=== PATIENT | female | born 1955 | race Caucasian/White ===

== ENCOUNTER 2018-06-02 10:26 | Emergency (ER) | payer BC ==
[2018-06-02 10:42] VITALS: BP 115/55
--- NOTE | 2018-06-02 11:22 | UC ---
Laceration HPI - HPI Summary HPI Summary: 62 yo female presents with laceration to right index finger. She tells me that last night she was closing her screen door and her finger got caught in a metal piece and she sustained a laceration to her right index finger pad. She bandaged the area, but today the site was still bleeding. Unsure date of last tetanus. - History Of Current Complaint Chief Complaint: UCLaceration Stated Complaint: FINGER LACERATION Time Seen by Provider: 06/02/18 11:22 Hx Obtained From: Patient Laceration Location: Finger Mechanism Of Injury: Sharp Trauma Onset/Duration: Sudden Onset Severity: Mild Pain Intensity: 2 Pain Scale Used: 0-10 Numeric - Allergies/Home Medications Allergies/Adverse Reactions: Allergies Allergy/AdvReac Type Severity Reaction Status Date / Time No Known Allergies Allergy Verified 06/02/18 10:42 Home Medications: Home Medications Escitalopram Oxalate [Lexapro 20 mg] 20 mg PO DAILY 06/02/18 [History Confirmed 06/02/18] PMH/Surg Hx/FS Hx/Imm Hx Psychological History: Anxiety, Depression - Surgical History Surgical History: Yes Surgery Procedure, Year, and Place: APPENDECTOMY. HYSTERECTOMY - Family History Known Family History: Positive: None - Social History Occupation: Employed Full-time Lives: With Family Alcohol Use: Occasionally Substance Use Type: None Smoking Status (MU): Never Smoked Tobacco Review of Systems All Other Systems Reviewed And Are Negative: Yes Constitutional: Positive: Negative Skin: Positive: Other - laceration right finger pad Respiratory: Positive: Negative Cardiovascular: Positive: Negative Neurovascular: Positive: Negative Neurological: Positive: Negative Psychological: Positive: Negative Physical Exam - Summary Physical Exam Summary: GENERAL: NAD. WDWN. No pain distress. SKIN: RIGHT index finger pad: 5mm square shaped superficial shear-like laceration. Mild active bleeding. Clean and without FB. NECK: Supple. Nontender. No lymphadenopathy. CHEST: No accessory muscle use. Breathing comfortably and in no distress. CV: Pulses intact. Cap refill <2seconds NEURO: Alert. PSYCH: Age appropriate behavior. Triage Information Reviewed: Yes Vital Signs: Initial Vital Signs Temp 98 F 06/02/18 10:39 Pulse 70 06/02/18 10:39 Resp 16 06/02/18 10:39 BP 115/55 06/02/18 10:39 Pulse Ox 98 06/02/18 10:39 Vital Signs Reviewed: Yes Laceration Course/Dx - Course/Dx Course Of Treatment: Wound irrigated with 500mL NS. Gel-foam applied and bandaged with telfa and tubegauze. tdap updated today - Diagnosis Provider Diagnosis: Laceration of right index finger Discharge - Sign-Out/Discharge Documenting (check all that apply): Patient Departure All imaging exams completed and their final reports reviewed: No Studies - Discharge Plan Condition: Stable Disposition: HOME Patient Education Materials: Finger Laceration (ED) Referrals: Azalea Hines MD [Primary Care Provider] - Additional Instructions: If you develop a fever, shortness of breath, chest pain, new or worsening symptoms - please call your PCP or go to the ED. 1) Keep the area covered for the next 2 days, at which point you may remove the bandage and keep covered with a band-aid until well healed (about 1-2 weeks) 2) Your tetanus shot was updated today - Billing Disposition and Condition Condition: STABLE Disposition: Home
[2018-06-02] MEDS ORDERED: Tetan/Diph/Pertus SYR(Tdap)* 0.5 ML SYR(BOOSTRIX) use SYR IM ONE (11:26)
[2018-06-02] MEDS ORDERED: Gelfoam 12-7 ADSORBABL SPONGE* 1 EA SPONGE TOPICAL ONE (11:31)
== END 2018-06-02 12:02 | disposition home or self-care (01) ==
LOC: UCEAST 10:26
DX: S61.210A Laceration without foreign body of right index finger without damage to nail, initial encounter (principal); W22.8XXA Striking against or struck by other objects, initial encounter; Y92.9 Unspecified place or not applicable
CPT/HCPCS: 90471; 90715; 99212; A9270-GY; G0463